=== PATIENT | female | born 1975 | race American Indian/Alaskan Native ===

== ENCOUNTER 2020-03-11 11:34 | Day surgery (SDC) | payer OTHER ==
[~2020-03-11 11:34] MED LIST: SODIUM CHLORIDE 0.9% 1000 ML 1,000 ML IV SCH
[2020-03-11] MEDS ORDERED: SODIUM CHLORIDE 0.9% 1000 ML 1,000 ML ONE (11:38)
[2020-03-11] MEDS ORDERED: MIDAZOLAM 2 MG/2 ML INJ ONE (12:24)
[2020-03-11] MEDS ORDERED: propofoL 200 MG/20 ML VIAL IV ONE (12:28)
--- NOTE | 2020-03-11 12:29 | Anesthesia Day of Surgery ---
Anesthesia Day of Surgery - Day of Surgery Patient Examined: Yes Patient H&P Reviewed: Yes Patient is NPO: Yes
--- NOTE | 2020-03-11 12:30 | Anesthesia Consultation ---
Anesthesia Consult and Med Hx Date of service: 03/11/20 - Airway Anesthetic Teeth Evaluation: Chipped ROM Head & Neck: Adequate Mental/Hyoid Distance: Adequate Mallampati Class: Class II Intubation Access Assessment: Good - Pre-Operative Health Status ASA Pre-Surgery Classification: ASA3 Proposed Anesthetic Plan: MAC - Pulmonary Hx Smoking: Yes Hx Respiratory Symptoms: No (+2FS) Hx Sleep Apnea: Yes - Cardiovascular System Hx Hypertension: Yes Hx Heart Attack/AMI: No Hx Angina: Yes (hx CP 11/18; neg cardiac work up. Presumed GERD.) Hx Percutaneous Transluminal Coronary Angioplasty (PTCA): No Hx Cardia Arrhythmia: No - Central Nervous System CVA: No - Gastrointestinal Hx Ulcer: Yes Hx Gastroesophageal Reflux Disease: Yes - Endocrine Hx Renal Disease: No Hx Liver Disease: No Hx Insulin Dependent Diabetes: No Hx Non-Insulin Dependent Diabetes: No Hx Thyroid Disease: No - Hematic Hx Sickle Cell Disease: No - Other Systems Hx Obesity: Yes
--- NOTE | 2020-03-11 13:18 | Procedure Note ---
Date of procedure: 03/11/20 Pre-op diagnosis: Dysphagia and Dyspepsia and Abdominal Pain Post-op diagnosis: other (Mild,Benign Esophageal Stenosis (s/p Esophageal dilation)/ Mild to Moderate Erosive Esophagitis/ Gastritis/ R/O Eosinophilic Esophagitis/ R/o Celiac Disease) Procedure: EGD with Biopsy and Esophageal Balloon dilation ( 20 mm) Anesthesia: [facility] [place] Surgeon: VIDHYA BAZZI Estimated blood loss: minimal Pathology: list Specimen disposition: to lab Condition: stable Disposition: same day (Treat with PPI,Reglan and continue with present treatment. Avoid aspirin and NSAID for 5 days; otherwise resume home medication. Follow up in 1 to 2 weeks ([phone]).)
--- NOTE | 2020-03-11 14:05 | Post Anesthesia Evaluation ---
- Post Anesthesia Evaluation Patient Participated: Yes Airway Patent: Yes Stable Respiratory Function: Yes Nausea/Vomiting: No Temp > 96.8F: Yes Pain Manageable: Yes Adequeate Hydration: Yes Anesthesia Complications: No Block Receding Appropriately: Not Applicable Patient on Ventilator: No
[2020-03-11 14:06] VITALS: BP 150/90
--- NOTE | 2020-03-11 16:47 | Operative Report ---
PROCEDURE: Esophagogastroduodenoscopy with biopsy and balloon dilation. INDICATIONS: This is a 44-year-old -[place] female who has been complaining of dysphagia. EGD was done to assess for the problem and to do an esophageal dilation. DESCRIPTION OF PROCEDURE: The procedure was done after getting informed consent with MAC anesthesia. Instrument was passed through the hypopharynx into the esophagus, which showed mild benign esophageal stenosis. Biopsy was done from the distal as well as from the mid esophagus to assess for the severity of the [id number] erosive esophagitis and also to rule out for any eosinophilic esophagitis. At the end of the procedure, the distal esophagus was dilated with a 20 mm balloon that was then pulled up as it was being deflated. The stomach showed gastritis. No ulcers were noted in the straight or the retroverted view. The pylorus was patent. The duodenum in the first and second portion appeared normal. Biopsy was done from the second part to rule out for possible celiac disease. Additional biopsy was done from the gastric antrum, gastric body and angular incisura to rule out for H. pylori and atrophic gastritis. There was minimal bleeding associated with the procedure. No complications associated with the procedure. ASSESSMENT: Dysphagia, mild benign esophageal stenosis, rule out eosinophilic esophagitis, szyi-lo-ikhzryql erosive esophagitis, gastritis, rule out celiac disease. PLAN: To treat the patient with PPI, p.r.n. dose of Bentyl, encouraged the patient to take probiotics. Avoid aspirin and aspirin-related products for the next 5 days. Otherwise, resume home medication. Follow up in the office in 1-2 weeks' time. The procedure was done in the GI lab with assistance of the GI lab team, which included NILAM, Cathy Payton, allie Schumacher and with assistance of anesthesia. JOB# [id number] NAIMA/MIRYAM
== END 2020-03-11 11:35 | disposition home or self-care (01) ==
LOC: GIO 11:34
DX: R13.10 Dysphagia, unspecified (principal); K22.2 Esophageal obstruction; K31.89 Other diseases of stomach and duodenum; I20.8 Other forms of angina pectoris; I10 Essential (primary) hypertension; G47.30 Sleep apnea, unspecified; K21.00 Gastro-esophageal reflux disease with esophagitis, without bleeding; K29.70 Gastritis, unspecified, without bleeding; E66.9 Obesity, unspecified; Z98.890 Other specified postprocedural states; Z91.040 Latex allergy status; Z88.8 Allergy status to other drugs, medicaments and biological substances; Z79.899 Other long term (current) drug therapy; Z90.49 Acquired absence of other specified parts of digestive tract; Z98.51 Tubal ligation status; Z68.39 Body mass index [BMI] 39.0-39.9, adult
CPT/HCPCS: 43239; 43249; 88305; 88342; C1726; J2250; J2704; J7030

== ENCOUNTER 2020-05-19 21:40 | Emergency (ER) | payer OTHER ==
[2020-05-19] MEDS ORDERED: ASPIRIN 325 MG TAB PO ONE (22:03)
[2020-05-19 22:37] LABS: Hematocrit 34.9 % (30.3-42.9); Mean Corpuscular HGB Conc 35 % (30-34); Mean Corpuscular Volume 90 fl (79-97); Platelet Count 199 K/mm3 (140-440); Red Blood Count 3.89 M/mm3 (3.65-5.03); Red Cell Distribution Width 13.9 % (13.2-15.2)
[2020-05-19 22:44] LABS: Lymphocytes % (Auto) 37.4 % (13.4-35.0)
[2020-05-19 22:45] LABS: Basophils % (Auto) 0.8 % (0.0-1.8); Eosinophils % (Auto) 0.7 % (0.0-4.3); Lymphocytes # (Auto) 1.5 K/mm3 (1.2-5.4); Monocytes # (Auto) 0.3 K/mm3 (0.0-0.8); Monocytes % (Auto) 7.7 % (0.0-7.3)
--- NOTE | 2020-05-19 22:59 | Emergency Department Report ---
Blank Doc - Documentation Documentation: 44-year-old female presents with chest pain and shortness of breath. Labs ordered
[2020-05-19 23:17] LABS: BUN/Creatinine Ratio 7; Blood Urea Nitrogen 8 mg/dL (7-17); Calcium 9.1 mg/dL (8.4-10.2); Hemolysis Index 6
--- NOTE | 2020-05-20 00:05 | XRay Report ---
CHEST 1 VIEW 2355 INDICATION / CLINICAL INFORMATION: Chest Pain COMPARISON: None available. FINDINGS: SUPPORT DEVICES: None HEART / MEDIASTINUM: No significant abnormality. LUNGS / PLEURA: No significant pulmonary or pleural abnormality. No pneumothorax. ADDITIONAL FINDINGS: No significant additional findings. IMPRESSION: No significant acute abnormality Signer Name: Melchor Noonan MD Signed: 05/20/2020 12:01 AM Workstation Name: [id number]
--- NOTE | 2020-05-20 02:39 | Emergency Department Report ---
ED Chest Pain HPI - General Chief Complaint: Chest Pain Stated Complaint: CHEST PAIN PUI?: No Time Seen by Provider: 05/20/20 02:26 Source: patient Mode of arrival: Ambulatory Limitations: No Limitations - History of Present Illness Initial Comments: Patient is a 44-year-old female that presents emergency room with complaints of chest pain. Patient states that she is also having dizziness and nausea. Patient states her symptoms been going on for 2 days. Patient states that she saw her bi manager yesterday around 8 in the morning and had an EKG and the bi manager states that the chest pain is not her heart. Patient states that the bi manager gave her nitro to be her precautions. Patient states she never picked up the nitroglycerin tabs. Patient denies cough and shortness of breath. Patient denies fever or chills. 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 Patient states that the chest pain is a 6 out of 10. Patient states the chest pain is worse with movement and palpation. Patient states that the chest pain is unchanged with exertion. Patient states that the chest pain is better with rest and remaining still. Patient states at times she has arm pain in her bilateral arms. Patient states that it is a muscle spasm pain in her arms at times. Patient states that her nausea and dizziness have resolved since being here. Patient states she has a past medical history of acid reflux, hypertension. Patient denies recent travel. Patient denies recent international travel. Patient denies exposure to the novel coronavirus. Patient denies sick contacts. Patient denies fever and chills. Patient denies cough. Patient denies diarrhea. Patient denies coming in contact with anybody with symptoms of the novel coronavirus. MD Complaint: chest pain -: Sudden Onset: during rest Pain Location: substernal, left chest Severity scale (0 -10): 6 Quality: sharp Consistency: constant Improves With: rest Worsens With: palpation, movement re: nausea. denies: vomting, diaphoresis, dyspnea, sense of impending doom Other Symptoms: denies: cough, fever, syncope, rash, acid taste in mouth, leg swelling, palpitations, burping Treatments Prior to Arrival: none Aspirin use within the Past 7 Days: (0) No - Related Data Home Medications Medication Instructions Recorded Confirmed Last Taken Claritin 10 mg PO QDAY 11/18/19 03/11/20 03/10/20 10:00 Lisinopril 20 mg PO QDAY 11/18/19 03/11/20 03/11/20 08:00 Previous Rx's Medication Instructions Recorded Last Taken Type Dicyclomine [Bentyl] 10 mg PO QID 30 Days #40 capsule 11/20/19 01/28/20 08:00 Rx Pantoprazole [Protonix] 40 mg PO QDAY 30 Days #30 tablet 11/20/19 03/10/20 10:00 Rx Metoclopramide [Reglan] 10 mg PO TID 30 Days #40 tab 03/11/20 Unknown Rx methylPREDNISolone [Medrol 4MG 4 mg PO DAILY 6 Days #1 tab.ds.pk 05/20/20 Unk nown Rx DOSEPAK (21 tabs)] Allergies Allergy/AdvReac Type Severity Reaction Status Date / Time latex Allergy Unknown Verified 11/18/19 14:59 Penicillins Allergy Unknown Verified 11/18/19 14:59 tramadol Allergy Unknown Verified 11/18/19 14:59 Heart Score - HEART Score History: Slightly suspicious EKG: Normal Age: < 45 Risk factors: No known risk factors Troponin: < normal limit HEART Score: 0 ED Review of Systems ROS: Stated complaint: CHEST PAIN Other details as noted in HPI Constitutional: denies: chills, fever Eyes: denies: eye pain, eye discharge, vision change ENT: denies: ear pain, throat pain Respiratory: denies: cough, shortness of breath, wheezing Cardiovascular: chest pain. denies: palpitations Endocrine: no symptoms reported Gastrointestinal: nausea. denies: abdominal pain, diarrhea Genitourinary: denies: urgency, dysuria, discharge Musculoskeletal: denies: back pain, joint swelling, arthralgia Skin: denies: rash, lesions Neurological: as per HPI. denies: headache, weakness, paresthesias, abnormal gait Psychiatric: denies: anxiety, depression Hematological/Lymphatic: denies: easy bleeding, easy bruising ED Past Medical Hx - Past Medical History Previous Medical History?: Yes Hx Hypertension: Yes Hx Heart Attack/AMI: No Hx Liver Disease: No Hx Renal Disease: No Hx Sickle Cell Disease: No Additional medical history: sjogren's disease - Surgical History Past Surgical History?: Yes Hx Appendectomy: Yes - Social History Smoking Status: Never Smoker - Medications Home Medications: Home Medications Medication Instructions Recorded Confirmed Last Taken Type Claritin 10 mg PO QDAY 11/18/19 03/11/20 03/10/20 10:00 History Lisinopril 20 mg PO QDAY 11/18/19 03/11/20 03/11/20 08:00 History Dicyclomine [Bentyl] 10 mg PO QID 30 Days #40 capsule 11/20/19 03/11/20 01/28/20 08:00 Rx Pantoprazole [Protonix] 40 mg PO QDAY 30 Days #30 tablet 11/20/19 03/11/20 03/10/20 10:00 Rx Metoclopramide [Reglan] 10 mg PO TID 30 Days #40 tab 03/11/20 Unknown Rx methylPREDNISolone [Medrol 4MG 4 mg PO DAILY 6 Days #1 tab.ds.pk 05/20/20 Unknown Rx DOSEPAK (21 tabs)] ED Physical Exam - General Limitations: No Limitations General appearance: alert, in no apparent distress - Head Head exam: Present: atraumatic, normocephalic - Eye Eye exam: Present: normal appearance - ENT ENT exam: Present: mucous membranes moist - Neck Neck exam: Present: normal inspection - Respiratory Respiratory exam: Present: normal lung sounds bilaterally, chest wall tenderness (Reproduces symptoms with palpation of the right and left chest wall. Tenderness to palpation of bilateral chest wall.). Absent: respiratory distress - Cardiovascular Cardiovascular Exam: Present: regular rate, normal rhythm. Absent: systolic murmur, diastolic murmur, rubs, gallop - GI/Abdominal GI/Abdominal exam: Present: soft, normal bowel sounds. Absent: distended, tenderness - Extremities Exam Extremities exam: Present: normal inspection - Back Exam Back exam: Present: normal inspection - Neurological Exam Neurological exam: Present: alert, oriented X3 - Psychiatric Psychiatric exam: Present: normal affect, normal mood - Skin Skin exam: Present: warm, dry, intact, normal color. Absent: rash ED Course Vital Signs 05/19/20 21:56 Temperature 98.5 F Pulse Rate 78 Respiratory 18 Rate Blood Pressure 164/103 O2 Sat by Pulse 100 Oximetry - Reevaluation(s) Reevaluation #1: I discussed all results and clinical findings with patient. I discussed plan of care with patient. Patient agrees with plan of care. Patient is stable for discharge. Patient will be discharged home. Patient given discharge instructions. Patient voiced understanding of discharge instructions. 05/20/20 03:56 ILIANA score - Iliana Score Age > 65: (0) No Aspirin use within the Past 7 Days: (0) No 3 or more CAD Risk Factors: (0) No 2 or more Angina events in past 24 hrs: (0) No Known CAD with more than 50% Stenosis: (0) No Elevated Cardiac Markers: (0) No ST Deviation Greater than 0.5mm: (0) No ILIANA Score: 0 ED Medical Decision Making - Lab Data Result diagrams: 05/19/20 22:16 05/19/20 22:16 - EKG Data -: EKG Interpreted by Me EKG shows normal: sinus rhythm, axis, intervals, QRS complexes, ST-T waves Rate: normal - Radiology Data Radiology results: report reviewed, image reviewed interpreted by me: Chest x-ray: No pneumonia, no pneumothorax, no foreign body, no osseous findings, no acute findings CHEST 1 VIEW [id number] INDICATION / CLINICAL INFORMATION: Chest Pain COMPARISON: None available. FINDINGS: SUPPORT DEVICES: None HEART / MEDIASTINUM: No significant abnormality. LUNGS / PLEURA: No significant pulmonary or pleural abnormality. No pneumothorax. ADDITIONAL FINDINGS: No significant additional findings. IMPRESSION: No significant acute abnormality - Medical Decision Making Patient is a 44-year-old female that presents emergency room with complaints of chest pain. Patient chest pain resolved for 2 days. Patient saw her bi manager the day of her ER visit. Patient had a EKG at cardiology was normal. Patient repeat EKG here and it was negative for acute findings. Patient EKG is shows a sinus rhythm and completely normal. Patient had chest x- ray was negative for acute finding. Patient had labs done. Patient's labs were essentially unremarkable. Patient had 2 - troponins. On physical exam, the patient's chest wall was tender to palpation. Patient clinical findings are consistent with costochondritis and chest wall pain. Patient encouraged to follow-up with her bi manager for further evaluation treatment. - Differential Diagnosis Costochondritis, chest wall pain, chest pain, GERD Critical care attestation.: If time is entered above; I have spent that time in minutes in the direct care of this critically ill patient, excluding procedure time. ED Disposition Clinical Impression: Chest wall pain, Costochondritis, acute Chest pain Qualifiers: Chest pain type: unspecified Qualified Code(s): R07.9 - Chest pain, unspecified Disposition: - TO HOME OR SELFCARE Is pt being admited?: No Does the pt Need Aspirin: No Condition: Stable Instructions: Costochondritis, [id number], Chest Wall Pain, [id number], Chest Pain (ED) Additional Instructions: Patient to follow-up with primary care in 2 to 3 days. Patient to follow-up with bi manager in 2 to 3 days. Patient to rest. Patient to increase water. Patient to avoid strenuous exercise or heavy lifting until cleared by bi manager. Patient to take Tylenol or ibuprofen as needed for pain. Patient to take meds as directed. Patient to return to the ER if condition worsens, changes or new symptoms arise. Prescriptions: methylPREDNISolone [Medrol 4MG DOSEPAK (21 tabs)] 4 mg PO DAILY 6 Days #1 tab.ds.pk Referrals: PRIMARY CARE, [Primary Care Provider] - 2-3 Days Time of Disposition: 03:56
[2020-05-20 03:32] LABS: Bacteria,Urine 1+ /HPF (Negative); Bilirubin,Urine NEG (Negative); Blood,Urine NEG (Negative); Color,Urine Yellow (Yellow); Mucus,Urine FEW /HPF; Protein,Urine <15 mg/dL mg/dL (Negative); Urobilinogen,Urine < 2.0 mg/dL (<2.0)
[2020-05-20 04:47] VITALS: BP 144/95
== END 2020-05-20 04:00 | disposition home or self-care (01) ==
LOC: ED 21:40
DX: M94.0 Chondrocostal junction syndrome [Tietze] (principal); R07.89 Other chest pain; I10 Essential (primary) hypertension; Z90.49 Acquired absence of other specified parts of digestive tract; Z79.899 Other long term (current) drug therapy; Z88.0 Allergy status to penicillin; Z91.040 Latex allergy status; Z88.8 Allergy status to other drugs, medicaments and biological substances
CPT/HCPCS: 36415; 71045; 80048; 81001; 84484; 84703; 85025; 93005

== ENCOUNTER 2021-11-01 19:31 | Emergency (ER) | payer OTHER ==
[2021-11-02] MEDS ORDERED: IBUPROFEN 800 MG TAB PO ONE (03:57)
--- NOTE | 2021-11-02 04:03 | Emergency Department Report ---
ED General Adult HPI - General Chief complaint: Fever Stated complaint: FEVERS/HEADACHE/JOINT PAIN/COVID EXPOSURE Time Seen by Provider: 11/02/21 02:09 Source: patient Mode of arrival: Ambulatory Limitations: No Limitations - History of Present Illness Initial comments: Patient 45-year-old female who presents for generalized malaise body aches low- grade fever and sore throat for 3 days. Patient states family contact with COVID. Patient states she is not COVID vaccinated there is no shortness of breath no wheezing or stridor. No hunger. No difficulty breathing. There is no nausea vomiting or diarrhea. Symptoms are exacerbated by activity. Symptoms are relieved by nothing tried. Patient rates symptoms at 08/06. - Related Data Home Medications Medication Instructions Recorded Confirmed Last Taken Claritin 10 mg PO QDAY 11/18/19 03/11/20 03/10/20 10:00 Lisinopril 20 mg PO QDAY 11/18/19 03/11/20 03/11/20 08:00 Previous Rx's Medication Instructions Recorded Last Taken Type Dicyclomine [Bentyl] 10 mg PO QID 30 Days #40 capsule 11/20/19 01/28/20 08:00 Rx Pantoprazole [Protonix] 40 mg PO QDAY 30 Days #30 tablet 11/20/19 03/10/20 10:00 Rx Metoclopramide [Reglan] 10 mg PO TID 30 Days #40 tab 03/11/20 Unknown Rx methylPREDNISolone [Medrol 4MG 4 mg PO DAILY 6 Days #1 tab.ds.pk 05/20/20 Unknown Rx DOSEPAK (21 tabs)] Ibuprofen [Motrin 800 MG tab] 800 mg PO Q8HR PRN #30 tablet 11/02/21 Unknown Rx Allergies Allergy/AdvReac Type Severity Reaction Status Date / Time latex Allergy Unknown Verified 11/18/19 14:59 Penicillins Allergy Unknown Verified 11/18/19 14:59 Sulfa (Sulfonamide Allergy Shortness Verified 11/01/21 21:14 Antibiotics) of Breath tramadol Allergy Unknown Verified 11/18/19 14:59 ED Review of Systems ROS: Stated complaint: FEVERS/HEADACHE/JOINT PAIN/COVID EXPOSURE Other details as noted in HPI Constitutional: malaise. denies: chills, fever Eyes: denies: eye pain, eye discharge, vision change ENT: epistaxis, congestion. denies: ear pain, throat pain, dental pain Respiratory: denies: cough, shortness of breath, wheezing Cardiovascular: denies: chest pain, palpitations Endocrine: no symptoms reported Gastrointestinal: denies: abdominal pain, nausea, vomiting, diarrhea Genitourinary: denies: urgency, dysuria, discharge Musculoskeletal: denies: back pain, joint swelling, arthralgia Skin: denies: rash, lesions Neurological: denies: headache, weakness, paresthesias Psychiatric: denies: anxiety, depression ED Past Medical Hx - Past Medical History Hx Hypertension: Yes Hx Heart Attack/AMI: No Hx Liver Disease: No Hx Renal Disease: No Hx Sickle Cell Disease: No Additional medical history: sjogren's disease - Surgical History Hx Appendectomy: Yes - Social History Smoking Status: Current Every Day Smoker - Medications Home Medications: Home Medications Medication Instructions Recorded Confirmed Last Taken Type Claritin 10 mg PO QDAY 11/18/19 03/11/20 03/10/20 10:00 History Lisinopril 20 mg PO QDAY 11/18/19 03/11/20 03/11/20 08:00 History Dicyclomine [Bentyl] 10 mg PO QID 30 Days #40 capsule 11/20/19 03/11/20 01/28/20 08:00 Rx Pantoprazole [Protonix] 40 mg PO QDAY 30 Days #30 tablet 11/20/19 03/11/20 03/10/20 10:00 Rx Metoclopramide [Reglan] 10 mg PO TID 30 Days #40 tab 03/11/20 Unknown Rx methylPREDNISolone [Medrol 4MG 4 mg PO DAILY 6 Days #1 tab.ds.pk 05/20/20 Unknown Rx DOSEPAK (21 tabs)] Ibuprofen [Motrin 800 MG tab] 800 mg PO Q8HR PRN #30 tablet 11/02/21 Unknown Rx ED Physical Exam - General Limitations: No Limitations General appearance: alert, in no apparent distress - Head Head exam: Present: normocephalic, normal inspection - Eye Eye exam: Present: normal appearance, PERRL, EOMI Pupils: Present: normal accommodation - ENT ENT exam: Present: normal orophraynx, mucous membranes moist, TM's normal bilaterally, normal external ear exam - Neck Neck exam: Present: normal inspection, full ROM. Absent: tenderness, lymphadenopathy - Respiratory Respiratory exam: Present: normal lung sounds bilaterally, chest wall tenderness. Absent: respiratory distress - Cardiovascular Cardiovascular Exam: Present: regular rate, normal rhythm, normal heart sounds. Absent: systolic murmur, diastolic murmur, rubs, gallop - GI/Abdominal GI/Abdominal exam: Present: soft, bruit. Absent: distended, tenderness - Rectal Rectal exam: Present: deferred - External exam: Present: normal external exam - Extremities Exam Extremities exam: Present: normal inspection, full ROM, normal capillary refill - Back Exam Back exam: Present: normal inspection, full ROM. Absent: CVA tenderness (R), CVA tenderness (L) - Neurological Exam Neurological exam: Present: alert, oriented X3, CN II-XII intact, normal gait - Psychiatric Psychiatric exam: Present: normal affect, normal mood - Skin Skin exam: Present: warm, dry, intact, normal color. Absent: rash ED Course Vital Signs 11/01/21 11/02/21 21:11 04:05 Temperature 99.2 F Pulse Rate 103 H Respiratory 16 16 Rate Blood Pressure 128/91 O2 Sat by Pulse 95 Oximetry ED Medical Decision Making - Radiology Data Radiology results: report reviewed, image reviewed XR chest routine 2V INDICATION / CLINICAL INFORMATION: cough fever. COMPARISON: 05/19/2020 FINDINGS: SUPPORT DEVICES: None. HEART /PULMONARY VASCULATURE: No significant abnormality. LUNGS / PLEURA: No significant pulmonary or pleural abnormality. No pneumothorax. ADDITIONAL FINDINGS: No significant additional findings. IMPRESSION: 1. No acute findings. Signer Name: Pérez Bell MD Signed: 11/02/2021 5:07 AM Workstation Name: [id number] Transcribed By: PENNY Dictated By: PÉREZ BELL MD Electronically Authenticated By: PÉREZ BELL MD Signed Date/Time: 11/02/21 050 DD/ 0506 TD/TT: - Medical Decision Making Pain is improved with medication given in ED. Patient is tolerating p.o. intake without nausea vomiting this time there is no shortness of breath no wheezing no stridor. No chest pain no nausea no vomiting no diaphoresis. Chest x-ray normal no infiltrates no opacities. This is likely viral syndrome. Plan DC to home continue to hydrate, follow-up with primary care doctor in 2 to 3 days. Patient verbalized agreement and understanding of discharge plan. Patient DC'd home in stable condition at this time. Critical care attestation.: If time is entered above; I have spent that time in minutes in the direct care of this critically ill patient, excluding procedure time. ED Disposition Clinical Impression: Viral syndrome Disposition: 01 HOME / SELF CARE / HOMELESS Is pt being admited?: No Does the pt Need Aspirin: No Condition: Stable Instructions: Viral Illness, Adult Additional Instructions: Take medications as prescribed, hydrate as directed. Follow-up with your doctor in 2 to 3 days. Return to emergency department should symptoms worsen. Prescriptions: Ibuprofen [Motrin 800 MG tab] 800 mg PO Q8HR PRN #30 tablet PRN Reason: pain fever Referrals: [facility] [Provider Group] - 3-5 Days Forms: Work/School Release Form(ED) Time of Disposition: 05:34
--- NOTE | 2021-11-02 05:11 | XRay Report ---
XR chest routine 2V INDICATION / CLINICAL INFORMATION: cough fever. COMPARISON: 05/19/2020 FINDINGS: SUPPORT DEVICES: None. HEART /PULMONARY VASCULATURE: No significant abnormality. LUNGS / PLEURA: No significant pulmonary or pleural abnormality. No pneumothorax. ADDITIONAL FINDINGS: No significant additional findings. IMPRESSION: 1. No acute findings. Signer Name: Johnie Moore MD Signed: 11/02/2021 5:07 AM Workstation Name: [id number]
[2021-11-02 06:17] VITALS: BP 150/98
== END 2021-11-02 06:15 | disposition home or self-care (01) ==
LOC: ED 19:31
DX: B34.9 Viral infection, unspecified (principal); I10 Essential (primary) hypertension; Z98.890 Other specified postprocedural states; F17.290 Nicotine dependence, other tobacco product, uncomplicated; Z88.0 Allergy status to penicillin; Z88.2 Allergy status to sulfonamides; Z88.8 Allergy status to other drugs, medicaments and biological substances; Z91.040 Latex allergy status
CPT/HCPCS: 71046; 99283